=== PATIENT | female | born 1950 | race Caucasian/White ===

== ENCOUNTER 2023-08-10 06:28 | Inpatient (IN) | payer MEDICARE, OTHER, SELFPAY ==
--- NOTE | 2023-07-13 09:51 | CM ---
Patient is scheduled for an elective L THR on 08/10/23. Spoke with patient prior to surgery via telephone. Patient had a R THR and B TR (both in 2015) at . Reintroduced role of Orthopedic Navigator. Patient reports that she lives alone in a two
story home. There are two steps to enter and a flight of steps to the second floor. There is a powder room on the entry level civil engineer. She currently functions independently and occasionally uses a cane. She also has a walker (she doesn't think it has
wheels), stair glide (which she doesn't use), raised toilet seat with rails, grabber, long handled shoe horn and sock aid. She has had VN services through [facility]. PCP is Dr Elisha Carnes.
Discussed orthopedic program and post surgical plans. Reviewed anticipated length of stay and that goal is for her to return home at discharge. Also reviewed outpatient PT. Patient is in agreement with tentative plan but will not have transportation
for outpatient PT and will need VN services. She will work on having someone stay with her initially.
Patient will complete online education.
Plan: Orthopedic Navigator will remain available to assist with the care of patient and will reassess discharge needs after surgery.
[2023-07-22 10:30] VITALS: BMI 37.9
[2023-07-22 11:21] LABS: Hematocrit 38.7 % (37.0-47.0); Hemoglobin 13.2 g/dL (12.0-16.0); Mean Corp Hgb Conc. 34.1 g/dL (33.0-37.0); Mean Corpuscular Hgb 29.8 pg (27.0-31.0); Mean Corpuscular Volume 87.4 fL (81.0-99.0); Mean Platelet Volume 11.5 fL (7.4-10.4); Platelet Count 273 10^3/uL (130-400); Red Blood Cell Count 4.43 10^6/uL (4.20-5.40); Red Cell Dist. Width 14.3 % (11.5-14.5); White Blood Cell Count 7.5 10^3/uL (4.8-10.8)
[2023-07-22 11:32] LABS: ALT (SGPT) 27 U/L (0-35); AST (SGOT) 31 U/L (14-36); Albumin 3.9 g/dl (3.5-5.0); Alkaline Phosphatase 85 U/L (38-126); Blood Urea Nitrogen 25 mg/dl (7-17); Calcium 9.3 mg/dl (8.4-10.2); Carbon Dioxide 23 mmol/L (22-30); Chloride 107 mmol/L (98-107); Estimated Creatinine Clearance 44 ml/min; Glucose 81 mg/dl (70-99); Potassium 4.8 mmol/L (3.5-5.1); Sodium 140 mmol/L (135-145); Total Bilirubin 0.5 mg/dl (0.2-1.3); Total Protein 6.6 g/dl (6.3-8.2); eGFR 43.15
[2023-07-22 12:14] LABS: Glycohemoglobin (HgbA1c) 5.8 % (4.0-5.6)
[2023-07-22 15:16] VITALS: BMI 37.9
[2023-08-10] VITALS (21 sets, daily range): BP systolic 63–200; BP diastolic 44–110; BMI 37.9
[2023-08-10] MEDS: TYLENOL 650 MG PO ×3 (08:32→20:18)
[2023-08-10] MEDS: NORMOSOL-R 1000 IV (08:33)
[2023-08-10] MEDS: CELEBREX 200 MG PO (08:49)
[2023-08-10] MEDS: SUBLIMAZE 25 MCG IV (11:01)
[2023-08-10] MEDS: NSS 1000 IV (11:24)
[2023-08-10] MEDS: ROXICODONE 5 MG PO (11:37)
--- NOTE | 2023-08-10 12:09 | SUR.PHASEI ---
Patient arrived to PACU hypotensive and with 'severe' rt shoulder pain, Dr Barger contacted re same. Hypotension treated by NIGHT MONITOR, pain in rt shoulder managed with elevation heat and pain meds. Virgen Wu RN BSN.
--- NOTE | 2023-08-10 12:11 | SUR.PHASEI ---
Called to give report to floor BENITO Mondragon at 1150, Alanna unable to take report as dealing with a difficult situation, will call when she can receive report. Virgen Wu RN BSN.
--- NOTE | 2023-08-10 12:28 | W.PN.ORTHO ---
Today's Communication / Plan
-
D/c when clinically stable.
Assessment
.
Distal Motor Intact: Yes
Dressing:
Clean, dry and intact.
Assessment:
L hip OA s/p L FRANKY w/ Dr Deleon 08/10/23
- s/p R FRANKY, 09/2014, and b/l TKA, 01/2015, by Dr Deleon
DVT prophylaxis - ASA, b/l venous foot pumps
Sciatic type pain post-op - add Gabapentin TID
Hypertension - diet controlled - monitor BP
PACs, asymptomatic - monitor on tele
Chronic kidney disease stage 3 - minimize nephrotoxins
- NSS over Normosol post-op
GERD - add Pepcid HS
Balance difficulties - on fall precautions
Obesity, BMI 37.9 - given her elevated BMI >35, the patient would likely benefit from Cefadroxil upon d/c for infection prevention. Cefadroxil to be renally dose adjusted d/t CKD
Left proximal humerus fracture after mechanical fall, 11/2022, treated conservatively.
Renal cell carcinoma, 25 years ago, status post left nephrectomy
Prediabetes, A1c 5.8
Plan
.
Surgery / Date: L FRANKY w/ Dr Deleon 08/10/23
DVT Prophylaxis: Aspirin
Activity:
Out of bed.
PT/OT
Discharge Plan: Home w/ VN
Subjective
.
.:
Patient appearing to rest comfortably in PACU.
Reports minimal sciatic-type pain post-procedure.
Denies any other new significant complaints.
Vital Signs and Labs
.
Vital Signs and Labs:
Lab Results
07/22/23 08:43
07/22/23 08:43
Temp Pulse Resp BP Pulse Ox
99 F 75 20 200/110 98
08/10/23 08:29 08/10/23 08:29 08/10/23 08:29 08/10/23 08:29 08/10/23 08:29
Physical Exam
-
HEENT: No pallor, cyanosis, or jaundice. Throat clear.
NECK: Supple. No JVD.
RESPIRATORY: Lungs clear to auscultation.
CVS: S1, S2 normal. RRR.�
ABDOMEN: Soft, non-tender. No distension. Obese.
EXTREMITIES: Strength equal, no calf pain with palpation/dorsiflexion. Calves soft.
VETERANS ADVISER: AOx3. No focal deficits. rivet catcher grossly intact
[2023-08-10] MEDS: NEURONTIN 200 MG PO ×3 (13:19→22:09)
--- NOTE | 2023-08-10 13:50 | PTCARENOTE ---
1315: Patient arrived to 2S. Head to toe assessment completed. Neurovascular assessment completed. Decreased sensation in B/L lower extremities. Patient is able to move toes in B/L lower extremities. Dorsal pedis B/L WNL. Left hip aqua cell clean,
dry, and intact. Patient complaining of 5/10 pain in L hip. Gabapentin service observer chief per order. IV fluids running per order. Call morales within reach and bed in lowest position. Family at bedside.
[2023-08-10] MEDS: ROXICODONE 10 MG PO ×2 (14:21→20:16)
[2023-08-10] MEDS: DILAUDID 0.5 MG IV (16:14)
[2023-08-10] MEDS: ASPIRIN 325 MG PO (17:14)
[2023-08-10] MEDS: ANCEF 5 IV (17:14)
[2023-08-10] MEDS: DECADRON 4 MG PO (20:17)
[2023-08-10] MEDS: COLACE 100 MG PO (20:18)
[2023-08-10] MEDS: SENOKOT 17.1999999999999993 MG PO (20:19)
[2023-08-10 22:02] LABS: Glucose - Point of Care 143 mg/dl (70-99)
[2023-08-10] MEDS: PEPCID 20 MG PO (22:08)
[2023-08-11] VITALS (7 sets, daily range): BP systolic 131–179; BP diastolic 72–100; PULSE 63
[2023-08-11] MEDS: TYLENOL PO ×2 (00:23→04:58)
[2023-08-11] MEDS: ANCEF 5 IV (02:25)
[2023-08-11] MEDS: ROXICODONE 5 MG PO ×2 (02:26→08:28)
--- NOTE | 2023-08-11 05:16 | PTCARENOTE ---
0245 late entry patient manual b/p RT arm 170/100, LT arm 160/100, patient sitting in chair. [facility] LEAD BURNER HELPER notified. B/P repeated in 1 hr. At 0350 manual B/P lying in bed RT arm 162/96, LT arm 158/90. [facility] LEAD BURNER HELPER notified of repeat b/p no
interventions at this time.
[2023-08-11] MEDS: NEURONTIN 200 MG PO (08:27)
[2023-08-11] MEDS: TYLENOL 650 MG PO ×2 (08:27→13:00)
[2023-08-11] MEDS: COLACE 100 MG PO (08:30)
[2023-08-11] MEDS: SENOKOT 17.1999999999999993 MG PO (08:30)
[2023-08-11] MEDS: ASPIRIN 325 MG PO (08:31)
[2023-08-11] MEDS: DECADRON 4 MG PO (08:31)
--- NOTE | 2023-08-11 08:47 | CM ---
Addendum entered by Beckie Hillman 08/11/23 12:23:
Spoke with patient's caregiver, Jenna. She was present for patient's therapy sessions and has no concerns about discharge plans. She states that family has been noticing signs of 'early dementia' and family plans to have patient evaluated once she
recovers from surgery. Discussed need for 24 hour supervision until patient knows her hip precautions and she confirmed that patient will have this amount of support.
Original Note:
Reviewed chart and held rounds with PT, OT and nursing. Patient admitted as planned for elective L THR. Met with patient and her caregiver, Jenna, at bedside. Confirmed information previously obtained for assessment. Also discussed discharge plans.
The plan is for patient to return home at discharge. Her caregiver will be staying with her for a week. Reviewed VN services including start of care (tentatively 08/11), services to be ordered (PT, OT, SN) and frequency/duration of services. Options
list provided and PAC data reviewed. Patient selects VN.
Patient has a raised toilet seat with rails, hip kit, rollator and a cane at home. She will need a rolling walker for home use; script obtained and given to PT.
VN referral was completed and sent to [facility] through [employer] with request for start of care on 08/11. Confirmation received of their ability to accept case. back order clerk to fax discharge instructions to [facility] when complete.
Patient will use [facility] pharmacy for discharge prescriptions.
--- NOTE | 2023-08-11 10:35 | W.PN.ORTHO ---
Today's Communication / Plan
-
Await PT recs. Pt did well w/ OT today.
D/c later today if remaining clinically stable.
Assessment
.
Distal Motor Intact: Yes
Dressing:
Clean, dry and intact.
Assessment:
L hip OA s/p L FRANKY w/ Dr Deleon 08/10/23
- s/p R FRANKY, 09/2014, and b/l TKA, 01/2015, by Dr Deleon
DVT prophylaxis - ASA, b/l venous foot pumps
Sciatic type pain post-op - continue Gabapentin TID
Hypertension - diet controlled
- BP slightly elevated post-op likely in setting of pain; did advise pt keep up w/ pain management, minimize salt to help improve BPs outpatient
- BP can further be followed-up on w/ PCP
PACs, asymptomatic - maintaining NSR on tele
Chronic kidney disease stage 3 - continue to minimize nephrotoxins
- NSS over Normosol post-op
GERD - continue Pepcid HS
Balance difficulties - on fall precautions
Obesity, BMI 37.9 - given her elevated BMI >35, the patient would likely benefit from Cefadroxil upon d/c for infection prevention. Cefadroxil to be renally dose adjusted d/t CKD
Left proximal humerus fracture after mechanical fall, 11/2022, treated conservatively.
Renal cell carcinoma, 25 years ago, status post left nephrectomy
Prediabetes, A1c 5.8
Plan
.
Surgery / Date: L FRANKY w/ Dr Deleon 08/10/23
DVT Prophylaxis: Aspirin
Activity:
Out of bed.
PT/OT
Discharge Plan: Home w/ VN
Subjective
.
.:
Patient resting comfortably in her chair.
L hip pain overall well controlled w/ her current pain med regimen.
Denies any new significant complaints.
Eager for potential d/c today.
Vital Signs and Labs
.
Vital Signs and Labs:
Lab Results
07/22/23 08:43
07/22/23 08:43
Temp Pulse Resp BP Pulse Ox
98.1 F 58 18 162/93 97
08/11/23 07:25 08/11/23 07:25 08/11/23 07:25 08/11/23 07:25 08/11/23 07:25
Non-invasive Hgb result: 10.8
Physical Exam
-
HEENT: No pallor, cyanosis, or jaundice. Throat clear.
NECK: Supple. No JVD.
RESPIRATORY: Lungs clear to auscultation.
CVS: S1, S2 normal. RRR.�
ABDOMEN: Soft, non-tender. No distension. Obese.
EXTREMITIES: Strength equal, no calf pain with palpation/dorsiflexion. Calves soft.
SECURITY SHIFT MANAGER: AOx3. No focal deficits. resistance welder grossly intact
--- NOTE | 2023-08-11 12:23 | W.DS.TRANS ---
DC Summary - Client Development Director
-
Discharge Instructions:
Sleep Apnea Risk Low
Discharge Diagnosis/Procedures L hip OA s/p L FRANKY w/ Dr Deleon 08/10/23
Diet Other diet
Additional Diets Diabetic carb controlled x1 week for wound
healing/infection prevention; then resume
regular diet.
Activity As tolerated,With Walker
Driving Restrictions Not until seen by your Dr
Bathing Restrictions OK to Shower
Other Services PT,VN,OT
Wound Care Dressing to be removed 1 week post-surgery.
Nayely to be removed in 2 weeks at follow-up
appointment with surgeon's office.
Instructions:
Stand-Alone Forms: Total Hip/Knee Replacement D/C
Changes to Home Medications: Yes
Discharge Medications:
DC Medications w/original date entered in [facility]
mupirocin 2 % topical ointment 1 applic intranasal BID #1 tube 07/22/23
Saccharomyces boulardii 250 mg capsule (Florastor) 250 mg PO DAILY #7 caps 08/11/23
acetaminophen 325 mg tablet 650 mg (2 x 325 mg) PO Q4HWA #60 tabs 08/11/23
aspirin 325 mg tablet 325 mg PO DAILY #30 tabs 08/11/23
cefadroxil 500 mg capsule 500 mg PO DAILY #7 caps 08/11/23
dexamethasone 4 mg tablet 4 mg PO BID #5 tabs 08/11/23
docusate sodium 100 mg capsule 100 mg PO BID #30 caps 08/11/23
famotidine 20 mg tablet 20 mg PO HS #30 tabs 08/11/23
gabapentin 100 mg capsule 200 mg (2 x 100 mg) PO TID neuropathic pain #30 caps 08/11/23
ondansetron HCl 4 mg tablet 4 mg PO Q6H PRN nausea and vomiting #30 tabs 08/11/23
oxycodone 5 mg tablet 5 - 10 mg (1 - 2 x 5 mg) PO Q4H PRN moderate-severe pain #30 tabs 08/11/23
sennosides 8.6 mg tablet (Senna Laxative) 17.2 mg (2 x 8.6 mg) PO BID #30 tabs 08/11/23
Home Medication Changes
Saccharomyces boulardii 250 mg capsule (Florastor) 250 mg PO DAILY #7 caps 08/11/23
acetaminophen 325 mg tablet 650 mg (2 x 325 mg) PO Q4HWA #60 tabs 08/11/23
aspirin 325 mg tablet 325 mg PO DAILY #30 tabs 08/11/23
cefadroxil 500 mg capsule 500 mg PO DAILY #7 caps 08/11/23
dexamethasone 4 mg tablet 4 mg PO BID #5 tabs 08/11/23
docusate sodium 100 mg capsule 100 mg PO BID #30 caps 08/11/23
famotidine 20 mg tablet 20 mg PO HS #30 tabs 08/11/23
gabapentin 100 mg capsule 200 mg (2 x 100 mg) PO TID neuropathic pain #30 caps 08/11/23
ondansetron HCl 4 mg tablet 4 mg PO Q6H PRN nausea and vomiting #30 tabs 08/11/23
oxycodone 5 mg tablet 5 - 10 mg (1 - 2 x 5 mg) PO Q4H PRN moderate-severe pain #30 tabs 08/11/23
sennosides 8.6 mg tablet (Senna Laxative) 17.2 mg (2 x 8.6 mg) PO BID #30 tabs 08/11/23
Pending Results: No
[2023-08-11] MEDS: PREVNAR 20 0.5 ML IM (13:05)
== END 2023-08-11 13:39 | disposition home health service (06) | DRG 470 ==
LOC: 2 SOUTH 06:28
PROVIDERS: ADMITTING PHYSICIAN Orthopaedic Surgery; FAMILY PHYSICIAN Family Medicine
PROC: 0SRB03A Replacement of Left Hip Joint with Ceramic Synthetic Substitute, Uncemented, Open Approach (ICD-10-PCS; 2023-08-11)
DX: M16.12 Unilateral primary osteoarthritis, left hip (principal); N18.30 Chronic kidney disease, stage 3 unspecified; I12.9 Hypertensive chronic kidney disease with stage 1 through stage 4 chronic kidney disease, or unspecified chronic kidney disease; K21.9 Gastro-esophageal reflux disease without esophagitis; E66.9 Obesity, unspecified; R73.03 Prediabetes; I49.1 Atrial premature depolarization; Z96.642 Presence of left artificial hip joint; M54.30 Sciatica, unspecified side; Z68.37 Body mass index [BMI] 37.0-37.9, adult; Z85.528 Personal history of other malignant neoplasm of kidney
CPT/HCPCS: 36415; 73502; 80053; 82962; 83036; 85027; 87070; 90677; 93005; 97110; 97116; 97163; 97166; 97530; 97535; C1776; G0009

== ENCOUNTER → 2023-08-17 11:55 | Outpatient (REF) | payer MEDICARE, OTHER, SELFPAY ==
[2023-08-17 12:29] LABS: Urine Albumin Trace (Neg - Trace); Urine Bilirubin 1+ (Negative); Urine Character Clear (Clear); Urine Color Yellow; Urine Glucose Negative (Negative); Urine Ketone Trace (Negative); Urine Leukocyte 2+ (Negative); Urine Nitrite Negative (Negative); Urine Occult Blood 4+ (Negative); Urine Urobilinogen Negative (Neg - 1+)
[2023-08-17 12:58] LABS: Urine Bacteria Moderate (Negative)
== END ==
LOC: CLAB 11:55
PROVIDERS: ATTENDING PHYSICIAN Physician Assistant Medical; FAMILY PHYSICIAN Family Medicine
DX: N39.0 Urinary tract infection, site not specified (principal)
CPT/HCPCS: 81003; 81015; 87086

== ENCOUNTER → 2023-12-28 17:50 | Outpatient (REF) | payer MEDICARE, OTHER, SELFPAY ==
[2023-12-28 19:59] LABS: % Basophils 0.8 % (0-2); % Eosinophils 3.6 % (0-6); % Immature Granulocytes 0.2 % (0-0.5); % Lymphocytes 21.3 % (20.5-51.1); % Monocytes 9.2 % (1.7-9.3); % Neutrophils 64.9 % (42.2-75.2); Absolute Eosinophils 0.2 10^3/uL (0-0.7); Absolute Lymphocytes 1.1 10^3/uL (1.2-3.4); Absolute Monocytes 0.5 10^3/uL (0.1-0.6); Absolute Neutrophils 3.3 10^3/uL (1.4-6.5); Hematocrit 41.2 % (37.0-47.0); Mean Corp Hgb Conc. 31.6 g/dL (33.0-37.0); Mean Corpuscular Hgb 27.6 pg (27.0-31.0); Mean Corpuscular Volume 87.5 fL (81.0-99.0); Mean Platelet Volume 11.5 fL (7.4-10.4); Nucleated Red Blood Cells % 0 %; Platelet Count 219 10^3/uL (130-400); Red Blood Cell Count 4.71 10^6/uL (4.20-5.40); Red Cell Dist. Width 14.5 % (11.5-14.5)
[2023-12-28 20:26] LABS: ALT (SGPT) 15 U/L (0-35); AST (SGOT) 27 U/L (14-36); Albumin 3.9 g/dl (3.5-5.0); Alkaline Phosphatase 85 U/L (38-126); Amylase 65 U/L (30-110); Blood Urea Nitrogen 19 mg/dl (7-17); Calcium 9.4 mg/dl (8.4-10.2); Carbon Dioxide 22 mmol/L (22-30); Chloride 109 mmol/L (98-107); Glucose 92 mg/dl (70-99); Lipase 68 U/L (23-300); Potassium 4.8 mmol/L (3.5-5.1); Sodium 142 mmol/L (135-145); Total Bilirubin 0.5 mg/dl (0.2-1.3); Total Protein 6.6 g/dl (6.3-8.2); eGFR 52.73
== END ==
LOC: CLAB 17:50
PROVIDERS: ATTENDING PHYSICIAN Physician Assistant Medical
DX: R17 Unspecified jaundice (principal)
CPT/HCPCS: 80053; 82150; 83690; 85025